=== PATIENT | female | born 1955 | race Caucasian/White ===

== ENCOUNTER 2018-02-16 11:55 | Outpatient (CLI) | payer OTHER | END 2018-02-16 11:56 | disposition home or self-care (01) | LOC: BICMAMMO 11:55 | PROVIDERS: ATTEND Family Medicine | DX: Z12.31 Encounter for screening mammogram for malignant neoplasm of breast (principal); R92.1 Mammographic calcification found on diagnostic imaging of breast | CPT/HCPCS: 77063; 77067 ==

== ENCOUNTER 2019-03-08 07:48 | Outpatient (CLI) | payer OTHER ==
--- NOTE | 2019-03-08 08:28 | MMO ---
Bilateral MAMMO Bilat Screen [facility]. CLINICAL HISTORY: Patient is 64 years old and is seen for screening. The patient has no family history of breast cancer. The patient has no personal history of cancer. VIEWS: The views performed were: bilateral craniocaudal with tomosynthesis and bilateral mediolateral oblique with tomosynthesis. FILMS COMPARED: The present examination has been compared to a prior imaging study performed at [facility] on 02/16/2018. This study has been interpreted with the assistance of computer-aided detection. MAMMOGRAM FINDINGS: There are scattered fibroglandular densities. There are no suspicious masses, suspicious calcifications, or new areas of architectural distortion. IMPRESSION: THERE IS NO MAMMOGRAPHIC EVIDENCE OF MALIGNANCY. A ROUTINE FOLLOW-UP MAMMOGRAM IN 1 YEAR IS RECOMMENDED. THE RESULTS OF THIS EXAM WERE SENT TO THE PATIENT. ACR BI-RADS Category 1 - Negative MAMMOGRAPHY NOTE: 1. A negative mammogram report should not delay a biopsy if a dominant of clinically suspicious mass is present. 2. Approximately 10% to 15% of breast cancers are not detected by mammography. 3. Adenosis and dense breasts may obscure an underlying neoplasm. Reported by: MATTHEW GIRALDO MD Electonically Signed: [id number]
== END 2019-03-08 07:49 | disposition home or self-care (01) ==
LOC: BICMAMMO 07:48
PROVIDERS: ATTEND Family Medicine
DX: Z12.31 Encounter for screening mammogram for malignant neoplasm of breast (principal)
CPT/HCPCS: 77063; 77067

== ENCOUNTER 2019-09-21 15:08 | Outpatient (CLI) | payer BC, OTHER ==
--- NOTE | 2019-09-21 15:23 | RAD ---
LUMBAR SPINE TWO VIEWS: 09/21/19 HISTORY: Chronic back pain. FINDINGS/IMPRESSION: No fracture, subluxation or bony destruction is seen. Mild degenerative changes are present. POS: [facility]
== END 2019-09-21 15:09 | disposition home or self-care (01) ==
LOC: BICRAD 15:08
PROVIDERS: ATTEND Family Medicine
DX: G89.29 Other chronic pain (principal); M47.816 Spondylosis without myelopathy or radiculopathy, lumbar region
CPT/HCPCS: 72100

== ENCOUNTER 2024-02-17 07:11 | Day surgery (SDC) | payer MEDICARE ==
[2024-02-16 11:32] VITALS: BMI 20.5
[~2024-02-17 07:11] MED LIST: EPINEPHrine 0.3 MG in Ophthalmic Irrigation Solution 500 ML IRR SCH
[2024-02-17] MEDS ORDERED: Cyclopentolate 1% Opth Drop 2 ML BOT ONE (07:59)
[2024-02-17] MEDS ORDERED: PHENYLephrine 2.5% Ophth Soln 15 ml Bottle ONE (07:59)
[2024-02-17] MEDS ORDERED: PROPOFOL 20 ML ONE (08:36)
[2024-02-17] MEDS ORDERED: Midazolam HCl 2 mg/2 ml Vial ONE (08:36)
[2024-02-17] MEDS ORDERED: fentaNYL 50 mcg/mL 1 mL Vial ONE (08:37)
[2024-02-17] MEDS ORDERED: Dexamethasone 4 mg/ml Vial ONE ×2 (08:53)
[2024-02-17] MEDS ORDERED: Maxitrol 0.1% Opth Oint 3.5 GM TUBE ONE (08:53)
[2024-02-17] MEDS ORDERED: Bupivacaine 0.75% 10 ML VIAL ONE (08:53)
[2024-02-17] MEDS ORDERED: Ondansetron PF 4 MG/2 ML Vial ONE (08:53)
[2024-02-17] MEDS ORDERED: Lidocaine 1% PF 5 ML VIAL ONE (08:53)
[2024-02-17] MEDS ORDERED: CEFAZOLIN 1 GM VIAL ONE (08:53)
[2024-02-17] MEDS ORDERED: Lidocaine 4% PF 5 ML AMP ONE (08:53)
== END 2024-02-17 10:05 | disposition home or self-care (01) ==
LOC: SDC 07:11
PROVIDERS: ATTEND Ophthalmology Retina Specialist
PROC: 08N53ZZ Release Left Vitreous, Percutaneous Approach (ICD-10-PCS; principal; 2024-02-17)
DX: H43.312 Vitreous membranes and strands, left eye (principal)
CPT/HCPCS: 67041; J0171; J0690; J1100; J2250; J2405; J2704; J3010; J3490

== ENCOUNTER 2024-03-23 06:46 | Day surgery (SDC) | payer MEDICARE ==
[2024-03-22 13:54] VITALS: BMI 28.2
[2024-03-23] MEDS ORDERED: PHENYLephrine 2.5% Ophth Soln 15 ml Bottle ONE (07:21)
[2024-03-23] MEDS ORDERED: Cyclopentolate 1% Opth Drop 2 ML BOT ONE (07:21)
[2024-03-23] MEDS ORDERED: fentaNYL 50 mcg/mL 1 mL Vial ONE (07:24)
[2024-03-23] MEDS ORDERED: PROPOFOL 20 ML ONE (07:24)
[2024-03-23] MEDS ORDERED: Lidocaine 1% PF 5 ML VIAL ONE (07:25)
[2024-03-23] MEDS ORDERED: Dexamethasone 4 mg/ml Vial ONE (08:37)
== END 2024-03-23 09:43 | disposition home or self-care (01) ==
LOC: SDC 06:46
PROVIDERS: ATTEND Ophthalmology Retina Specialist
PROC: 08T43ZZ Resection of Right Vitreous, Percutaneous Approach (ICD-10-PCS; principal; 2024-03-23)
DX: H43.311 Vitreous membranes and strands, right eye (principal); K21.9 Gastro-esophageal reflux disease without esophagitis; G43.909 Migraine, unspecified, not intractable, without status migrainosus; Z96.653 Presence of artificial knee joint, bilateral; Z98.890 Other specified postprocedural states; Z90.49 Acquired absence of other specified parts of digestive tract; Z79.899 Other long term (current) drug therapy
CPT/HCPCS: 67041; J0171; J1100; J2704; J3010